=== PATIENT | female | born 1975 | race Caucasian/White ===

== ENCOUNTER 2016-07-16 09:32 | Emergency (ER) | payer BC ==
[~2016-07-16] VITALS: Ht 167.6 cm; Wt 70.5 kg
[~2016-07-16 09:32] MED LIST: MULTIPLE VITAMI1 CAP PO; NORCO 325 MG-51 TAB PO; PRILOSEC 20MG20 MG PO; SEASONALE 30 MC1 TAB PO
[2016-07-16 09:34] VITALS: TEMP 99.2
[2016-07-16] MEDS ORDERED: NASONEX SPRAY17 GM NS (09:37)
[2016-07-16 10:11] LABS: PH 5 (5-8); URINE APPEARANCE Hazy; URINE BACTERIA Occasional /hpf; URINE BILIRUBIN Negative (NEGATIVE); URINE BLOOD Negative (NEGATIVE); URINE COLOR Yellow; URINE GLUCOSE Negative (NEGATIVE); URINE KETONE Trace (NEGATIVE); URINE RBC 0-2 /hpf; URINE UROBILINOGEN Negative (NEGATIVE)
[2016-07-16] MEDS ORDERED: QUASENSE 30 MCG1 TAB PO (10:24)
[2016-07-16 10:25] LABS: BASO % 0.2 % (0.0-2.0); EOS % 0.2 % (0-4.0); GRAN # 10.9 (1.4-6.5); GRAN % 80.3 % (42.2-75.2); HEMATOCRIT 40.3 % (37.0-47.0); HEMOGLOBIN 13.6 g/dl (12.5-16.0); LYMPH # 1.6 (1.2-3.4); LYMPH % 11.5 % (20.0-51.0); MEAN CELL VOLUME 98 fl (80.0-100.0); MEAN CORPUSCULAR HEMOGLOBIN 33 pg (27.0-31.0); MEAN CORPUSCULAR HGB CONC 34 g/dl (33.0-37.0); MEAN PLATELET VOLUME 9.7 fl (7.4-10.4); MONO % 7.4 % (1.7-9.3); PLATELET COUNT 277 K/mm3 (130-400); RED BLOOD COUNT 4.13 M/mm3 (4.10-5.30); REDCELL DISTRIBUTION WIDTH-CV 12.2 % (11.5-14.5); WHITE BLOOD COUNT 13.6 K/mm3 (4.8-10.8)
[2016-07-16 10:40] LABS: ADJUSTED CALCIUM 8.9 mg/dL (8.4-10.2); ALBUMIN 4.1 gm/dL (3.5-5.0); BILIRUBIN,TOTAL 0.8 mg/dL (0.0-1.0); C-REACTIVE PROTEIN 3.8 mg/dL (0.0-0.9); CREATININE, serum 0.7 mg/dL (0.52-1.25); POTASSIUM 3.5 mmol/L (3.4-5.0); TOTAL PROTEIN 7.5 gm/dL (6.4-8.2)
[2016-07-16] MEDS ORDERED: PHENERGAN 25 TA25 MG PO (11:58)
[2016-07-16] MEDS ORDERED: CIPRO 500MG TA500 MG PO (11:58)
[2016-07-16] MEDS ORDERED: NORCO 325 MG-51 TAB PO (11:58)
[2016-07-16] MEDS ORDERED: FLAGYL500 MG PO (11:58)
[2016-07-16 12:00] VITALS: BP 102/69; PULSE 78
== END 2016-07-16 12:07 | disposition home or self-care (01) ==
LOC: COL.ER 09:32
PROVIDERS: Physician Assistant
DX: K52.9 Noninfective gastroenteritis and colitis, unspecified (principal)
CPT/HCPCS: J2270; J2405; J2550; J7030; Q9967

== ENCOUNTER 2016-11-29 00:33 | Emergency (ER) | payer BC ==
[~2016-11-29] VITALS: Ht 167.6 cm; Wt 72.7 kg
[~2016-11-29 00:33] MED LIST changes: +CIPRO 500MG TA500 MG PO; +FLAGYL500 MG PO; +NASONEX SPRAY17 GM NS; +PHENERGAN 25 TA25 MG PO; +QUASENSE 30 MCG1 TAB PO
[2016-11-29 00:37] VITALS: BP 118/74; PULSE 66; TEMP 98.9
[2016-11-29] MEDS ORDERED: AMOXICILLIN/CLA1 TA1 PO (00:51)
== END 2016-11-29 01:24 | disposition home or self-care (01) ==
LOC: COL.ER 00:33
DX: S60.511A Abrasion of right hand, initial encounter (principal); S60.811A Abrasion of right wrist, initial encounter; W55.03XA Scratched by cat, initial encounter; Y92.009 Unspecified place in unspecified non-institutional (private) residence as the place of occurrence of the external cause

== ENCOUNTER → 2018-01-27 | Outpatient (CLI) | payer BC ==
[~2018-01-27] MED LIST changes: +AMOXICILLIN/CLA1 TA1 PO
== END ==
LOC: MC.RAD 12-20 11:20
DX: Z12.31 Encounter for screening mammogram for malignant neoplasm of breast (principal)

== ENCOUNTER → 2019-11-26 | Outpatient (CLI) | payer BC | LOC: MC.RAD 16:39 | DX: Z12.31 Encounter for screening mammogram for malignant neoplasm of breast (principal) ==

== ENCOUNTER → 2024-01-09 | Outpatient (CLI) | payer BC ==
[~2024-01-09] MED LIST changes: +JOLESSA 30 MCG-1 TAB PO
== END ==
LOC: MC.RAD 13:49
DX: Z12.31 Encounter for screening mammogram for malignant neoplasm of breast (principal); N64.89 Other specified disorders of breast